=== PATIENT | male | born 1955 | race Hispanic/Latino ===

== ENCOUNTER → 2019-07-10 | Outpatient (CLI) | payer OTHER | END | disposition home or self-care (01) | LOC: RAH 13:22 | PROVIDERS: ATTEND Internal Medicine Cardiovascular Disease | DX: Z13.6 Encounter for screening for cardiovascular disorders (principal) | CPT/HCPCS: 75571 ==

== ENCOUNTER → 2023-10-25 | Outpatient (CLI) | payer OTHER, MEDICARE | END | disposition home or self-care (01) | LOC: RAH 13:06 | PROVIDERS: ATTEND Urology | DX: N50.3 Cyst of epididymis (principal); N43.3 Hydrocele, unspecified | CPT/HCPCS: 76870 ==

== ENCOUNTER → 2025-05-27 | Outpatient (CLI) | payer MEDICARE, OTHER ==
--- NOTE | 2025-05-28 06:15 | HMCIMG ---
EXAM: MR Brain Including Brain stemWithout and With IV Contrast CLINICAL HISTORY: Headache unspecified. TECHNIQUE: Multiplanar multi-sequence MRI of the brain with contrast. COMPARISON: None provided. FINDINGS: No abnormal parenchymal signal is present. No abnormal post-contrast enhancement. No evidence of acute cortical infarction, hemorrhage, mass or mass effect. The ventricular system is normal in size, shape, and contour. No hydrocephalus. No abnormal extra-axial fluid collection is present. The marrow signal within the skull base and calvarium is intact. The paranasal sinuses and mastoid air cells are clear. IMPRESSION: 1. No acute intracranial abnormality or mass. No abnormal post-contrast enhancement. /[place]
== END | disposition home or self-care (01) ==
LOC: RAH 14:53
PROVIDERS: ATTEND Family Medicine
DX: R51.9 Headache, unspecified (principal)
CPT/HCPCS: 70551